=== PATIENT | female | born 1955 | race Caucasian/White ===

== ENCOUNTER 2021-08-15 11:59 | Inpatient (IN) | payer OTHER ==
[2021-08-15 13:18] LABS: BASO % 1.3 % (0-2.0); EOS % 1.3 % (0-4.5); HEMATOCRIT 15.3 % (32.4-45.2); LYMPH % 10.1 % (8-40); MCHC 29.1 g/dl (32.0-36.0); MEAN CELL VOLUME 57.6 fl (80-96); MEAN PLT VOLUME 7.7 fl (7.5-11.1); MONO % 9.2 % (3.8-10.2); NEUT % 78.1 % (42.8-82.8); PLATELET COUNT 608 10^3/uL (134-434); RBC 2.65 M/mm3 (3.60-5.2); WHITE BLOOD COUNT 10.8 K/mm3 (4.0-10.0)
[2021-08-15 13:19] LABS: HEMOGLOBIN 4.4 GM/dL (10.7-15.3); MCH 16.8 pg (25.7-33.7)
[2021-08-15 13:35] LABS: BLOOD UREA NITROGEN 10.8 mg/dL (7-18)
[2021-08-15 13:36] LABS: ALBUMIN 3.3 g/dl (3.4-5.0)
[2021-08-15 13:38] LABS: CREATININE 0.7 mg/dL (0.55-1.3)
[2021-08-15 13:39] LABS: BILIRUBIN,TOTAL 0.2 mg/dL (0.2-1); TOT PROT 7.2 g/dl (6.4-8.2)
[2021-08-15 13:41] LABS: ANISOCYTOSIS 2+; MACROCYTOSIS 0
[2021-08-16 03:23] VITALS: BMI 25.2
[2021-08-16 08:34] LABS: BASO % 1.3 % (0-2.0); HEMATOCRIT 22.3 % (32.4-45.2); LYMPH % 12.4 % (8-40); MCH 20.9 pg (25.7-33.7); MCHC 31.1 g/dl (32.0-36.0); MEAN CELL VOLUME 67.3 fl (80-96); MONO % 8.1 % (3.8-10.2); NEUT % 76.2 % (42.8-82.8); PLATELET COUNT 492 10^3/uL (134-434); RBC 3.31 M/mm3 (3.60-5.2); RDW 29.5 % (11.6-15.6); WHITE BLOOD COUNT 12.4 K/mm3 (4.0-10.0)
[2021-08-16 08:40] LABS: HEMOGLOBIN 6.9 GM/dL (10.7-15.3)
[2021-08-16 09:05] LABS: CALCIUM 8.7 mg/dL (8.5-10.1)
[2021-08-16 09:06] LABS: BLOOD UREA NITROGEN 7.7 mg/dL (7-18)
[2021-08-16 09:08] LABS: CREATININE 0.6 mg/dL (0.55-1.3); TOT PROT 6.1 g/dl (6.4-8.2)
[2021-08-16 09:10] LABS: BILIRUBIN,TOTAL 0.4 mg/dL (0.2-1)
[2021-08-16] MEDS: SERTRALINE HCL 50 MG TABLET (FP) PO SCH (09:45)
[2021-08-16] MEDS: PANTOPRAZOLE 40 MG TABLET PO SCH (09:45)
[2021-08-16] MEDS: DEXTROSE 5%-0.45% SALINE 1,000 ML IV SCH (09:46)
[2021-08-16] MEDS: ATORVASTATIN CA 10 MG TABLET (FP) PO SCH (21:46)
[2021-08-17] MEDS: DEXTROSE 5%-0.45% SALINE 1,000 ML IV SCH (03:17)
[2021-08-17 08:56] LABS: BASO % 1.9 % (0-2.0); EOS % 1.2 % (0-4.5); HEMATOCRIT 27.9 % (32.4-45.2); HEMOGLOBIN 8.7 GM/dL (10.7-15.3); LYMPH % 8.4 % (8-40); MCH 22.3 pg (25.7-33.7); MCHC 31.3 g/dl (32.0-36.0); MEAN CELL VOLUME 71.1 fl (80-96); MEAN PLT VOLUME 7.5 fl (7.5-11.1); NEUT % 81.5 % (42.8-82.8); PLATELET COUNT 481 10^3/uL (134-434); RBC 3.92 M/mm3 (3.60-5.2); RDW 31.4 % (11.6-15.6)
[2021-08-17 09:21] LABS: BLOOD UREA NITROGEN 6.7 mg/dL (7-18); CALCIUM 8.9 mg/dL (8.5-10.1)
[2021-08-17 09:24] LABS: CREATININE 0.6 mg/dL (0.55-1.3)
[2021-08-17 09:26] LABS: BILIRUBIN,TOTAL 0.6 mg/dL (0.2-1); TOT PROT 6.5 g/dl (6.4-8.2)
[2021-08-17] MEDS: PANTOPRAZOLE 40 MG TABLET PO SCH (10:59)
[2021-08-17] MEDS: SERTRALINE HCL 50 MG TABLET (FP) PO SCH (10:59)
[2021-08-17] MEDS: AMOX TR/POT CLAV 875MG/125MG TABLETS (FP) PO SCH (17:12)
[2021-08-17] MEDS: ATORVASTATIN CA 10 MG TABLET (FP) PO SCH (22:22)
[2021-08-18 08:57] LABS: BASO % 1.1 % (0-2.0); EOS % 2.6 % (0-4.5); HEMATOCRIT 27.1 % (32.4-45.2); HEMOGLOBIN 8.6 GM/dL (10.7-15.3); LYMPH % 8.5 % (8-40); MCHC 31.8 g/dl (32.0-36.0); MEAN CELL VOLUME 72.3 fl (80-96); MEAN PLT VOLUME 8.1 fl (7.5-11.1); MONO % 7.8 % (3.8-10.2); PLATELET COUNT 452 10^3/uL (134-434); RBC 3.75 M/mm3 (3.60-5.2); RDW 31.9 % (11.6-15.6); WHITE BLOOD COUNT 10.8 K/mm3 (4.0-10.0)
[2021-08-18] MEDS: PANTOPRAZOLE 40 MG TABLET PO SCH (09:00)
[2021-08-18] MEDS: AMOX TR/POT CLAV 875MG/125MG TABLETS (FP) PO SCH ×2 (09:00→17:18)
[2021-08-18] MEDS: SERTRALINE HCL 50 MG TABLET (FP) PO SCH (09:00)
[2021-08-18 09:34] LABS: ALBUMIN 2.9 g/dl (3.4-5.0)
[2021-08-18 09:35] LABS: BLOOD UREA NITROGEN 5.4 mg/dL (7-18); CALCIUM 8.8 mg/dL (8.5-10.1)
[2021-08-18 09:38] LABS: CREATININE 0.5 mg/dL (0.55-1.3)
[2021-08-18 09:40] LABS: BILIRUBIN,TOTAL 0.7 mg/dL (0.2-1); TOT PROT 6.2 g/dl (6.4-8.2)
[2021-08-18] MEDS: DEXTROSE 5%-0.45% SALINE 1,000 ML IV SCH (21:19)
[2021-08-18] MEDS: ATORVASTATIN CA 10 MG TABLET (FP) PO SCH (21:20)
[2021-08-19 07:25] LABS: IGA IMMUNOGLOBULIN 240 mg/dL (87-352); IGG QN IMMUNOGLOBULIN 794 mg/dL (586-1602); IGM QN SERUM 188 mg/dL (26-217)
[2021-08-19] MEDS: AMOX TR/POT CLAV 875MG/125MG TABLETS (FP) PO SCH (09:29)
[2021-08-19] MEDS: PANTOPRAZOLE 40 MG TABLET PO SCH (09:29)
[2021-08-19] MEDS: SERTRALINE HCL 50 MG TABLET (FP) PO SCH (09:30)
[2021-08-19 15:55] VITALS: BP 143/88; PULSE 74; TEMP 98.5
== END 2021-08-19 18:16 | disposition home or self-care (01) | DRG 253 ==
LOC: JER 11:59 → JERBED 12:43 → J8W 19:42
PROVIDERS: ADMIT Internal Medicine; ATTEND Internal Medicine
PROC: 30233N1 Transfusion of Nonautologous Red Blood Cells into Peripheral Vein, Percutaneous Approach (ICD-10-PCS; principal; 2021-08-15)
DX: K92.2 Gastrointestinal hemorrhage, unspecified (principal); J44.9 Chronic obstructive pulmonary disease, unspecified; E78.5 Hyperlipidemia, unspecified; I10 Essential (primary) hypertension; D50.9 Iron deficiency anemia, unspecified; L03.113 Cellulitis of right upper limb; R51.9 Headache, unspecified
CPT/HCPCS: 36415; 36430; 71045-TC-FY; 80053; 82272; 82550; 82607; 82728; 82747; 82784; 83540; 83550; 84155; 84165; 84439; 84443; 84484; 85014; 85025; 86850; 86900; 86901; 86922; 93005; 93010; 93306-TC; 99285-25; C9803-CS; P9058; U0003; U0005